=== PATIENT | female | born 1940 | race African-American/Black ===

== ENCOUNTER 2018-05-13 09:17 | Emergency (ER) | payer SELFPAY ==
[~2018-05-13] VITALS: Ht 165.1 cm; Wt 81.0 kg
[2018-05-13 09:25] VITALS: BP 140/89
[2018-05-13] MEDS ORDERED: SODIUM CHLORIDE 0.9% 1,000 ML IV ONE (09:33)
[2018-05-13 09:55] LABS: BASOPHILS % 0.8 % (0.0-2.0); EOSINOPHILS % 5.2 % (0.0-5.0); HEMATOCRIT. 39.8 % (36.0-48.0); HEMOGLOBIN. 13.1 g/dL (12.0-16.0); LYMPHOCYTES % 34.6 % (20.0-50.0); MEAN CORPUSCULAR HEMOGLOBIN 26.8 pg (28.0-32.0); MEAN CORPUSCULAR VOLUME 81.7 fL (81.0-99.0); MEAN PLATELET VOLUME 9.3 fl (7.4-10.4); MONOCYTES % 7.3 % (2.0-8.0); NEUTROPHILS % 52.1 % (40.0-76.0); PLATELET 244 x1000/uL (130-400); RED BLOOD CELL COUNT 4.87 mill/uL (4.2-5.4); RED CELL DISTRIBUTION WIDTH 14.7 % (11.6-14.6)
[2018-05-13 09:59] LABS: CHLORIDE 105 mEq/L (98-107)
[2018-05-13 10:06] LABS: ETHANOL BLOOD < 10 mg/dL
[2018-05-13 10:55] LABS: CLARITY URINE CLEAR (CLEAR); COLOR URINE YELLOW (YELLOW); KETONES URINE NEGATIVE (NEGATIVE); LEUKOCYTE ESTERASE URINE 2+ (NEGATIVE); NITRITE URINE NEGATIVE (NEGATIVE); OCCULT BLOOD URINE NEGATIVE (NEGATIVE); PH URINE 7.5 (4.5-8.0); PROTEIN URINE NEGATIVE (NEGATIVE); SPECIFIC GRAVITY URINE 1.016 (1.005-1.030)
[2018-05-13 11:07] LABS: *BARBITURATES SCREEN URINE NEGATIVE (NEGATIVE); *BENZODIAZEPINES SCREEN URINE NEGATIVE (NEGATIVE); *COCAINE SCREEN URINE NEGATIVE (NEGATIVE); CANNABINOID URINE SCREEN NEGATIVE (NEGATIVE)
[2018-05-13 11:08] LABS: *AMPHETAMINES SCREEN URINE NEGATIVE (NEGATIVE); METHADONE URINE SCREEN NEGATIVE (NEGATIVE); OPIATES URINE SCREEN NEGATIVE (NEGATIVE); PHENCYCLIDINE URINE SCREEN NEGATIVE (NEGATIVE)
[2018-05-13] MEDS ORDERED: IOHEXOL-350 100 ML BOTTLE ONE (12:48)
== END 2018-05-13 14:03 | disposition home or self-care (01) ==
LOC: ER 09:17
DX: R55 Syncope and collapse (principal); E04.9 Nontoxic goiter, unspecified; R79.9 Abnormal finding of blood chemistry, unspecified; R79.89 Other specified abnormal findings of blood chemistry; I10 Essential (primary) hypertension; C50.912 Malignant neoplasm of unspecified site of left female breast; E88.09 Other disorders of plasma-protein metabolism, not elsewhere classified; K46.9 Unspecified abdominal hernia without obstruction or gangrene; Z88.5 Allergy status to narcotic agent
CPT/HCPCS: 36415; 71045; 71275; 80053; 80305; 81003; 83880; 84484; 85025; 85379; 93005; 96360; 99285; G0482; J7030; Q9967